=== PATIENT | female | born 1960 | race Caucasian/White ===

== ENCOUNTER 2016-07-04 05:39 | Day surgery (SDC) | payer MEDICARE, MEDICAID ==
[2016-07-03 14:05] LABS: ASPARTATE AMINO TRANSFERASE 20 U/L (15-37); BLOOD UREA NITROGEN 9 mg/dL (7-18)
[~2016-07-04] VITALS: Ht 170.2 cm; Wt 82.0 kg
[~2016-07-04 05:39] MED LIST: ALBU18HF INH; BUDE10.2 INH; DICYCLOMINE PO; LISINOPRIL PO; METOPROLOL PO
[2016-07-04] MEDS ORDERED: LACTATED RINGERS 1,000 ML IV SCH (06:19)
[2016-07-04 06:23] VITALS: BP 148/101
[2016-07-04] MEDS ORDERED: DICY10CA3 PO (06:28)
[2016-07-04] MEDS ORDERED: LISI-170 PO (06:28)
[2016-07-04] MEDS ORDERED: METO25TA35 PO (06:28)
[2016-07-04] MEDS ORDERED: LIDOCAINE 1%, 2ML SQ PRN (06:30)
[2016-07-04] MEDS ORDERED: PROPOFOL 10 MG/ML, 20ML ONE (07:39)
[2016-07-04] MEDS ORDERED: FENTANYL PF 100 MCG/2ML ONE (07:41)
[2016-07-04] MEDS ORDERED: PROMETHAZINE 25 MG/ML, 1ML IV PRN (08:30)
[2016-07-04] MEDS ORDERED: LABETALOL 5MG/ML, 20ML IV PRN (08:30)
[2016-07-04] MEDS ORDERED: HYDROmorphone 1 MG/ML, 1ML IV PRN (08:30)
[2016-07-04] MEDS ORDERED: OXYcodone 5 MG/5 ML ORAL.SOL UDC PO PRN (08:30)
[2016-07-04] MEDS ORDERED: ONDANSETRON 2MG/ML, 2ML IVPush PRN (08:30)
[2016-07-04] MEDS ORDERED: hydrALAzine 20 MG/ML, 1ML IV PRN (08:30)
[2016-07-04] MEDS ORDERED: FENTANYL PF 100 MCG/2ML IV PRN (08:30)
== END 2016-07-04 10:30 | disposition home or self-care (01) ==
LOC: OUT 05:39
PROVIDERS: ATTEND Internal Medicine Geriatric Medicine
DX: K86.89 Other specified diseases of pancreas (principal); I10 Essential (primary) hypertension; J44.9 Chronic obstructive pulmonary disease, unspecified; Z86.19 Personal history of other infectious and parasitic diseases; F17.210 Nicotine dependence, cigarettes, uncomplicated
CPT/HCPCS: 36415; 43239; 43259; 80053; 88305; 93005; J2704; J3010

== ENCOUNTER 2016-07-25 06:41 | Day surgery (SDC) | payer MEDICARE, MEDICAID ==
[~2016-07-25] VITALS: Ht 170.2 cm; Wt 79.0 kg
[~2016-07-25 06:41] MED LIST changes: +DICY10CA3 PO; +LISI-170 PO; +METO25TA35 PO
[2016-07-25] MEDS ORDERED: LACTATED RINGERS 1,000 ML IV SCH (07:25)
[2016-07-25 07:26] VITALS: BP 128/85
[2016-07-25] MEDS ORDERED: SUCCINYLCHOLINE 20 MG/ML, 10ML ONE (08:56)
[2016-07-25] MEDS ORDERED: ROCURONIUM 10 MG/ML ONE (08:56)
[2016-07-25] MEDS ORDERED: PROPOFOL 10 MG/ML, 20ML ONE (08:56)
[2016-07-25] MEDS ORDERED: ONDANSETRON 2MG/ML, 2ML IVPush PRN (09:00)
[2016-07-25] MEDS ORDERED: MEPERIDINE/PF 25MG/0.5ML IVPush PRN (09:00)
[2016-07-25] MEDS ORDERED: METOCLOPRAMIDE 5 MG/ML, 2ML IV PRN (09:00)
[2016-07-25] MEDS ORDERED: OXYcodone 5 MG/5 ML ORAL.SOL UDC PO PRN (09:00)
[2016-07-25] MEDS ORDERED: LABETALOL 5MG/ML, 20ML IV PRN (09:00)
[2016-07-25] MEDS ORDERED: PROMETHAZINE 25 MG/ML, 1ML IV PRN (09:00)
[2016-07-25] MEDS ORDERED: ALBUTEROL SULFATE 2.5 MG/3 ML NPPB PRN (09:00)
[2016-07-25] MEDS ORDERED: hydrALAzine 20 MG/ML, 1ML IV PRN (09:00)
[2016-07-25] MEDS ORDERED: HYDROmorphone 1 MG/ML, 1ML IV PRN (09:00)
[2016-07-25] MEDS ORDERED: INDOMETHACIN 50 MG SUPP.RECT ONE ×2 (09:39→10:00)
[2016-07-25] MEDS ORDERED: OMNIPAQUE 350 MG/ML, 50 ML BOTTLE ONE (10:14)
[2016-07-25] MEDS ORDERED: OXYcodone 5 MG/5 ML ORAL.SOL UDC ONE (10:17)
[2016-07-25] MEDS ORDERED: FENTANYL PF 100 MCG/2ML ONE (10:17)
[2016-07-25] MEDS: FENTANYL PF 100 MCG/2ML IV PRN ×3 (10:21→11:36)
[2016-07-25] MEDS ORDERED: INDOMETHACIN 50 MG SUPP.RECT PR ONE (10:30)
[2016-07-25] MEDS ORDERED: HYDROmorphone 2 MG/ML, 1ML ONE (12:24)
[2016-07-25] MEDS ORDERED: HYDROmorphone 1 MG/ML, 1ML IV ONE (12:30)
== END 2016-07-25 13:00 | disposition home or self-care (01) ==
LOC: OUT 06:41
PROVIDERS: ATTEND Internal Medicine Geriatric Medicine
DX: K86.89 Other specified diseases of pancreas (principal); J44.9 Chronic obstructive pulmonary disease, unspecified; F17.200 Nicotine dependence, unspecified, uncomplicated; F41.9 Anxiety disorder, unspecified; Z86.19 Personal history of other infectious and parasitic diseases; Z86.73 Personal history of transient ischemic attack (TIA), and cerebral infarction without residual deficits; Z85.42 Personal history of malignant neoplasm of other parts of uterus; Z90.710 Acquired absence of both cervix and uterus; Z98.890 Other specified postprocedural states; Z87.01 Personal history of pneumonia (recurrent); Z72.89 Other problems related to lifestyle
CPT/HCPCS: 43264; 43274; 74330; C1769; C2625; J0330; J1170; J2704; J3010; J7120; Q9967

== ENCOUNTER 2016-10-03 05:32 | Day surgery (SDC) | payer MEDICARE, MEDICAID ==
[~2016-10-03] VITALS: Ht 167.6 cm; Wt 74.2 kg
[2016-10-03] MEDS ORDERED: LACTATED RINGERS 1,000 ML IV SCH (06:07)
[2016-10-03 06:08] VITALS: BP 107/77
[2016-10-03] MEDS ORDERED: LIDOCAINE 1%, 2ML SQ PRN (06:30)
[2016-10-03] MEDS ORDERED: FENTANYL PF 100 MCG/2ML ONE ×2 (07:31→08:46)
[2016-10-03] MEDS ORDERED: ACETAMINOPHEN 325 MG TABLET PO PRN (08:30)
[2016-10-03] MEDS ORDERED: ONDANSETRON 2MG/ML, 2ML IVPush PRN (08:30)
[2016-10-03] MEDS ORDERED: MIDAZOLAM 1 MG/ML, 2ML IV PRN (08:30)
[2016-10-03] MEDS ORDERED: MEPERIDINE/PF 25MG/0.5ML IVPush PRN (08:30)
[2016-10-03] MEDS ORDERED: LABETALOL 5MG/ML, 20ML IV PRN (08:30)
[2016-10-03] MEDS ORDERED: hydrALAzine 20 MG/ML, 1ML IV PRN (08:30)
[2016-10-03] MEDS ORDERED: PROMETHAZINE 25 MG/ML, 1ML IV PRN (08:30)
[2016-10-03] MEDS ORDERED: OXYcodone 5 MG/5 ML ORAL.SOL UDC PO PRN (08:30)
[2016-10-03] MEDS ORDERED: HYDROmorphone 1 MG/ML, 1ML IV PRN (08:30)
[2016-10-03] MEDS ORDERED: INDOMETHACIN 50 MG SUPP.RECT ONE (08:39)
[2016-10-03] MEDS ORDERED: OXYcodone 5 MG/5 ML ORAL.SOL UDC ONE (08:47)
[2016-10-03] MEDS ORDERED: OMNIPAQUE 350 MG/ML, 50 ML BOTTLE ONE (08:50)
[2016-10-03] MEDS: FENTANYL PF 100 MCG/2ML IV PRN ×3 (08:50→09:10)
[2016-10-03] MEDS ORDERED: ALBUTEROL/IPRATROPIUM 2.5MG/0.5MG, 3 ML ONE (08:52)
[2016-10-03] MEDS ORDERED: ACETAMINOPHEN 650 MG/20.3 ML UDC ONE (08:53)
[2016-10-03] MEDS ORDERED: INDOMETHACIN 50 MG SUPP.RECT PR ONE (09:00)
[2016-10-03] MEDS ORDERED: PROPOFOL 10 MG/ML, 20ML ONE (16:26)
[2016-10-03] MEDS ORDERED: SUCCINYLCHOLINE 20 MG/ML, 10ML ONE (16:26)
[2016-10-03] MEDS ORDERED: ONDANSETRON 2MG/ML, 2ML ONE (16:26)
[2016-10-03] MEDS ORDERED: ROCURONIUM 10 MG/ML ONE (16:26)
[2016-10-03] MEDS ORDERED: ESMOLOL 100 MG/10 ML ONE (16:26)
== END 2016-10-03 10:10 ==
LOC: OUT 05:32
PROVIDERS: ATTEND Internal Medicine Geriatric Medicine
DX: K86.89 Other specified diseases of pancreas (principal); K85.90 Acute pancreatitis without necrosis or infection, unspecified; J44.9 Chronic obstructive pulmonary disease, unspecified; F17.210 Nicotine dependence, cigarettes, uncomplicated
CPT/HCPCS: 43276; 74328; 94640; C1769; C1894; C2625; J0330; J2405; J2704; J3010; J7120; Q9967

== ENCOUNTER 2016-11-30 07:18 | Inpatient (IN) | payer MEDICARE, MEDICAID ==
[~2016-11-30] VITALS: Ht 167.6 cm; Wt 76.8 kg
[2016-11-30] MEDS ORDERED: SODIUM CHLORIDE FLUSH 10ML SYR IVF ONE (07:30)
[2016-11-30] MEDS ORDERED: FAMOTIDINE 20 MG/2 ML IVP ONE (07:30)
[2016-11-30] MEDS ORDERED: ONDANSETRON 2MG/ML, 2ML IVPush ONE (07:30)
[2016-11-30] MEDS ORDERED: SODIUM CHLORIDE 0.9% 1,000ML IVBOLUS ONE (07:30)
[2016-11-30] MEDS ORDERED: FAMOTIDINE 20 MG/2 ML ONE (07:50)
[2016-11-30] MEDS ORDERED: ONDANSETRON 2MG/ML, 2ML ONE (07:50)
[2016-11-30] MEDS ORDERED: HYDROmorphone 1 MG/ML, 1ML ONE ×5 (07:50→16:36)
[2016-11-30 09:12] LABS: HEMATOCRIT 48.9 % (34.6-47.8); HEMOGLOBIN 16.4 g/dL (11.7-16.4); WHITE BLOOD COUNT 10.3 x10^3/uL (3.4-10)
[2016-11-30] MEDS: HYDROmorphone 1 MG/ML, 1ML IVPush PRN ×2 (09:15→10:38)
[2016-11-30] MEDS ORDERED: OMNIPAQUE 350 MG/ML, 100ML BOTTLE ONE (09:59)
[2016-11-30] MEDS ORDERED: HYDROmorphone 2 MG/ML, 1ML IVPush ONE ×2 (11:30→13:30)
[2016-11-30 11:31] LABS: ASPARTATE AMINO TRANSFERASE 22 U/L (15-37); BLOOD UREA NITROGEN 11 mg/dL (7-18)
[2016-11-30] MEDS ORDERED: HYDROmorphone 2 MG/ML, 1ML ONE ×2 (12:14→13:35)
[2016-11-30] MEDS ORDERED: ALBUTEROL SULFATE 2.5MG/0.5ML NPPB PRN (13:30)
[2016-11-30] MEDS ORDERED: LISINOPRIL 20 MG TABLET PO ONE (13:30)
[2016-11-30] MEDS: METOPROLOL TARTRATE 25 MG TABLET PO SCH ×2 (15:09→21:22)
[2016-11-30] MEDS ORDERED: LISINOPRIL 20 MG TABLET ONE (15:21)
[2016-11-30] MEDS: HYDROmorphone 1 MG/ML, 1ML IV PRN ×3 (15:29→19:08)
[2016-11-30] MEDS: SODIUM CHLORIDE 0.9% 1,000 ML IV SCH (15:29)
[2016-11-30 17:21] VITALS: BP 185/81
[2016-11-30] MEDS ORDERED: ALBUTEROL SULFATE 2.5 MG/3 ML NPPB PRN (18:00)
[2016-11-30 19:43] VITALS: BP 151/91
[2016-11-30] MEDS: ENOXAPARIN 30 MG/0.3 ML SQ SCH (21:00)
[2016-11-30] MEDS: FAMOTIDINE 20 MG/2 ML IVPush SCH (21:00)
[2016-11-30] MEDS: HYDROmorphone 2 MG/ML, 1ML IVPush PRN ×2 (21:11→23:17)
[2016-12-01] MEDS: HYDROmorphone 2 MG/ML, 1ML IVPush PRN ×4 (01:16→22:31)
[2016-12-01 01:59] VITALS: BP 140/86
[2016-12-01] MEDS: HYDROmorphone 1 MG/ML, 1ML IV PRN ×6 (03:18→16:02)
[2016-12-01 06:42] LABS: HEMATOCRIT 52.1 % (34.6-47.8); HEMOGLOBIN 17.4 g/dL (11.7-16.4); WHITE BLOOD COUNT 9.9 x10^3/uL (3.4-10)
[2016-12-01 06:43] LABS: BLOOD UREA NITROGEN 9 mg/dL (7-18)
[2016-12-01 06:45] LABS: ASPARTATE AMINO TRANSFERASE 14 U/L (15-37)
[2016-12-01 06:55] VITALS: BP 182/91
[2016-12-01] MEDS: METOPROLOL TARTRATE 25 MG TABLET PO SCH ×2 (07:38→21:48)
[2016-12-01] MEDS: LISINOPRIL 20 MG TABLET PO SCH (09:59)
[2016-12-01] MEDS: ENOXAPARIN 30 MG/0.3 ML SQ SCH ×2 (10:10→21:48)
[2016-12-01] MEDS: ONDANSETRON 2MG/ML, 2ML IVPush PRN (10:10)
[2016-12-01] MEDS: SODIUM CHLORIDE 0.9% 1,000 ML IV SCH (11:20)
[2016-12-01] MEDS ORDERED: MIDAZOLAM 1 MG/ML, 2ML ONE (12:43)
[2016-12-01] MEDS ORDERED: FENTANYL PF 100 MCG/2ML ONE ×4 (12:43→15:36)
[2016-12-01] MEDS ORDERED: ONDANSETRON 2MG/ML, 2ML ONE (12:45)
[2016-12-01] MEDS ORDERED: DEXAMETHASONE 4 MG/ML, 1ML ONE (12:45)
[2016-12-01] MEDS ORDERED: PROPOFOL 10 MG/ML, 20ML ONE (12:45)
[2016-12-01] MEDS ORDERED: SUCCINYLCHOLINE 20 MG/ML, 10ML ONE (12:45)
[2016-12-01] MEDS ORDERED: ALBUTEROL/IPRATROPIUM 2.5MG/0.5MG, 3 ML NPPB PRN (13:00)
[2016-12-01] MEDS ORDERED: HYDROmorphone 1 MG/ML, 1ML IV PRN (13:00)
[2016-12-01] MEDS ORDERED: PROMETHAZINE 25 MG/ML, 1ML IV PRN (13:00)
[2016-12-01] MEDS ORDERED: METOPROLOL 1 MG/ML, 5ML IV PRN (13:00)
[2016-12-01] MEDS ORDERED: OXYcodone 5 MG/5 ML ORAL.SOL UDC PO PRN (13:00)
[2016-12-01] MEDS ORDERED: LORazepam 2 MG/ML, 1ML IVPush PRN (13:00)
[2016-12-01] MEDS ORDERED: METOPROLOL 1 MG/ML, 5ML ONE (13:32)
[2016-12-01] MEDS ORDERED: MORPHINE SULFATE 4 MG/ML, 1ML ONE (14:30)
[2016-12-01] MEDS ORDERED: hydrALAzine 20 MG/ML, 1ML ONE (15:25)
[2016-12-01] MEDS ORDERED: LABETALOL 5MG/ML, 20ML ONE (15:25)
[2016-12-01] MEDS ORDERED: INDOMETHACIN 50 MG SUPP.RECT ONE (15:25)
[2016-12-01] MEDS: LABETALOL 5MG/ML, 20ML IVPush PRN ×2 (15:27→15:32)
[2016-12-01] MEDS ORDERED: INDOMETHACIN 50 MG SUPP.RECT PR ONE (15:30)
[2016-12-01] MEDS ORDERED: HYDROmorphone 1 MG/ML, 1ML ONE ×3 (15:36→16:04)
[2016-12-01] MEDS ORDERED: OXYcodone 5 MG/5 ML ORAL.SOL UDC ONE (15:37)
[2016-12-01] MEDS: FENTANYL PF 100 MCG/2ML IV PRN ×2 (15:38→15:45)
[2016-12-01] MEDS: hydrALAzine 20 MG/ML, 1ML IV PRN ×2 (15:54→16:15)
[2016-12-01] MEDS: PIPERACILLIN/TAZO/PMX 3.375GM 50 ML IV SCH (16:42)
[2016-12-01 20:00] VITALS: BP 120/75
[2016-12-01] MEDS: FAMOTIDINE 20 MG/2 ML IVPush SCH (21:47)
[2016-12-02] MEDS: PIPERACILLIN/TAZO/PMX 3.375GM 50 ML IV SCH ×3 (01:01→17:29)
[2016-12-02] MEDS: HYDROmorphone 2 MG/ML, 1ML IVPush PRN ×11 (01:02→23:58)
[2016-12-02 02:00] VITALS: BP 112/65
[2016-12-02] MEDS: SODIUM CHLORIDE 0.9% 1,000 ML IV SCH ×2 (03:59→17:29)
[2016-12-02 04:55] LABS: BLOOD UREA NITROGEN 11 mg/dL (7-18)
[2016-12-02 04:56] LABS: HEMATOCRIT 40.9 % (34.6-47.8); HEMOGLOBIN 13.6 g/dL (11.7-16.4)
[2016-12-02 05:00] LABS: ASPARTATE AMINO TRANSFERASE 10 U/L (15-37)
[2016-12-02] MEDS ORDERED: ALBUTEROL SULFATE 2.5 MG/3 ML NPPB PRN (07:00)
[2016-12-02 07:12] VITALS: BP 120/73
[2016-12-02] MEDS: LISINOPRIL 20 MG TABLET PO SCH ×2 (08:54→09:00)
[2016-12-02] MEDS: METOPROLOL TARTRATE 25 MG TABLET PO SCH ×3 (08:54→21:49)
[2016-12-02] MEDS: ENOXAPARIN 30 MG/0.3 ML SQ SCH ×2 (08:54→21:50)
[2016-12-02 15:07] VITALS: BP 136/87
[2016-12-02 19:47] VITALS: BP 175/115
[2016-12-02 21:46] VITALS: BP 157/92
[2016-12-02] MEDS: FAMOTIDINE 20 MG/2 ML IVPush SCH (21:49)
[2016-12-03] MEDS: PIPERACILLIN/TAZO/PMX 3.375GM 50 ML IV SCH ×3 (01:32→17:14)
[2016-12-03 01:35] VITALS: BP 149/80
[2016-12-03] MEDS: HYDROmorphone 2 MG/ML, 1ML IVPush PRN ×2 (02:07→04:27)
[2016-12-03] MEDS: SODIUM CHLORIDE 0.9% 1,000 ML IV SCH ×2 (03:37→14:30)
[2016-12-03 03:46] LABS: HEMATOCRIT 40.4 % (34.6-47.8); HEMOGLOBIN 13.5 g/dL (11.7-16.4); WHITE BLOOD COUNT 6.4 x10^3/uL (3.4-10)
[2016-12-03 04:00] LABS: ASPARTATE AMINO TRANSFERASE 14 U/L (15-37); BLOOD UREA NITROGEN 6 mg/dL (7-18)
[2016-12-03] MEDS: HYDROmorphone PCA 30 MG/30 ML IV PRN ×2 (07:50→17:13)
[2016-12-03] MEDS: LISINOPRIL 20 MG TABLET PO SCH (08:37)
[2016-12-03] MEDS: FLUTICASONE/VILANTEROL 200-25MCG/INH INH SCH (08:37)
[2016-12-03] MEDS: METOPROLOL TARTRATE 25 MG TABLET PO SCH ×2 (08:37→21:15)
[2016-12-03] MEDS: ENOXAPARIN 30 MG/0.3 ML SQ SCH ×2 (08:38→21:16)
[2016-12-03 09:03] VITALS: BP 168/103
[2016-12-03 14:40] VITALS: BP 124/79
[2016-12-03 20:59] VITALS: BP 136/82
[2016-12-03] MEDS: FAMOTIDINE 20 MG/2 ML IVPush SCH (21:15)
[2016-12-04 01:14] VITALS: BP 164/85
[2016-12-04] MEDS: PIPERACILLIN/TAZO/PMX 3.375GM 50 ML IV SCH ×3 (02:22→20:28)
[2016-12-04] MEDS: SODIUM CHLORIDE 0.9% 1,000 ML IV SCH ×2 (02:22→11:57)
[2016-12-04 04:04] LABS: HEMATOCRIT 37.9 % (34.6-47.8); HEMOGLOBIN 12.5 g/dL (11.7-16.4); WHITE BLOOD COUNT 5.5 x10^3/uL (3.4-10)
[2016-12-04 04:16] LABS: ASPARTATE AMINO TRANSFERASE 12 U/L (15-37); BLOOD UREA NITROGEN 4 mg/dL (7-18)
[2016-12-04] MEDS: ENOXAPARIN 30 MG/0.3 ML SQ SCH ×3 (07:55→21:00)
[2016-12-04] MEDS: METOPROLOL TARTRATE 25 MG TABLET PO SCH ×2 (07:56→20:28)
[2016-12-04] MEDS: LISINOPRIL 20 MG TABLET PO SCH (07:56)
[2016-12-04] MEDS: FLUTICASONE/VILANTEROL 200-25MCG/INH INH SCH (07:56)
[2016-12-04] MEDS: ONDANSETRON 2MG/ML, 2ML IVPush PRN (07:56)
[2016-12-04 08:02] VITALS: BP 186/93
[2016-12-04] MEDS: LABETALOL 5MG/ML, 20ML IVPush PRN (08:09)
[2016-12-04 15:17] VITALS: BP 170/88
[2016-12-04] MEDS: KETOROLAC 30 MG/1 ML IVPush PRN (17:50)
[2016-12-04] MEDS: HYDROmorphone PCA 30 MG/30 ML IV PRN (18:22)
[2016-12-04 20:19] VITALS: BP 206/100
[2016-12-04] MEDS: FAMOTIDINE 20 MG/2 ML IVPush SCH (20:28)
[2016-12-04 21:15] VITALS: BP 195/103
[2016-12-04] MEDS ORDERED: ENALAPRILAT 1.25 MG/ML, 2ML IV ONE (21:30)
[2016-12-04 21:40] VITALS: BP 167/94
[2016-12-05 01:40] VITALS: BP 197/95
[2016-12-05] MEDS: SODIUM CHLORIDE 0.9% 1,000 ML IV SCH (01:50)
[2016-12-05] MEDS ORDERED: hydrALAzine 20 MG/ML, 1ML IV PRN (02:00)
[2016-12-05 02:25] VITALS: BP 162/85
[2016-12-05] MEDS: PIPERACILLIN/TAZO/PMX 3.375GM 50 ML IV SCH ×3 (04:13→20:19)
[2016-12-05 05:19] VITALS: BP 168/94
[2016-12-05 08:00] VITALS: BP 178/96
[2016-12-05] MEDS: FLUTICASONE/VILANTEROL 200-25MCG/INH INH SCH (08:05)
[2016-12-05] MEDS: METOPROLOL TARTRATE 25 MG TABLET PO SCH ×2 (08:05→20:20)
[2016-12-05] MEDS: KETOROLAC 30 MG/1 ML IVPush PRN (08:10)
[2016-12-05] MEDS: ONDANSETRON 2MG/ML, 2ML IVPush PRN (08:11)
[2016-12-05] MEDS: ENOXAPARIN 30 MG/0.3 ML SQ SCH ×2 (08:37→20:19)
[2016-12-05] MEDS: LISINOPRIL 10 MG TABLET PO SCH (09:00)
[2016-12-05] MEDS ORDERED: LISINOPRIL 20 MG TABLET PO SCH (09:00)
[2016-12-05] MEDS: ACYCLOVIR 200 MG CAPSULE PO SCH ×4 (11:51→20:19)
[2016-12-05] MEDS ORDERED: GLUCAGON 1 MG IM PRN (12:30)
[2016-12-05] MEDS ORDERED: HYDROmorphone PCA 30 MG/30 ML IV PRN (12:30)
[2016-12-05] MEDS ORDERED: DEXTROSE 4 GM TAB.CHEW PO PRN (12:30)
[2016-12-05] MEDS ORDERED: DEXTROSE 50%, 50ML SYRINGE IVPush PRN (12:30)
[2016-12-05] MEDS: INSULIN ASPART 100 UNITS/ML, PEN SQ-INSULIN SCH ×3 (13:03→21:00)
[2016-12-05 15:37] VITALS: BP 172/95
[2016-12-05 19:54] VITALS: BP 129/84
[2016-12-05] MEDS: FAMOTIDINE 20 MG/2 ML IVPush SCH (20:19)
[2016-12-05] MEDS: SODIUM CHLORIDE FLUSH 10ML SYR IVF SCH (20:19)
[2016-12-06 01:30] VITALS: BP 109/69
[2016-12-06] MEDS: PIPERACILLIN/TAZO/PMX 3.375GM 50 ML IV SCH (04:57)
[2016-12-06 05:36] LABS: BLOOD UREA NITROGEN 6 mg/dL (7-18)
[2016-12-06] MEDS: ACYCLOVIR 200 MG CAPSULE PO SCH ×5 (06:42→20:32)
[2016-12-06 06:56] VITALS: BP 138/80
[2016-12-06] MEDS: INSULIN ASPART 100 UNITS/ML, PEN SQ-INSULIN SCH ×4 (07:00→20:36)
[2016-12-06] MEDS: ENOXAPARIN 30 MG/0.3 ML SQ SCH ×2 (08:33→20:32)
[2016-12-06] MEDS: METOPROLOL TARTRATE 25 MG TABLET PO SCH ×2 (08:34→20:32)
[2016-12-06] MEDS: FLUTICASONE/VILANTEROL 200-25MCG/INH INH SCH (08:35)
[2016-12-06] MEDS: SODIUM CHLORIDE FLUSH 10ML SYR IVF SCH ×2 (08:37→20:32)
[2016-12-06] MEDS: LISINOPRIL 10 MG TABLET PO SCH (08:39)
[2016-12-06] MEDS ORDERED: POTASSIUM CHLORIDE 20 MEQ TAB.ER.PRT PO ONE (09:00)
[2016-12-06] MEDS ORDERED: LISINOPRIL 10 MG TABLET PO SCH (09:00)
[2016-12-06 13:37] VITALS: BP 150/92
[2016-12-06 20:14] VITALS: BP 180/81
[2016-12-06] MEDS: FAMOTIDINE 20 MG/2 ML IVPush SCH (20:31)
[2016-12-07 01:21] VITALS: BP 144/81
[2016-12-07] MEDS: ACYCLOVIR 200 MG CAPSULE PO SCH ×5 (05:05→22:34)
[2016-12-07 05:59] LABS: BLOOD UREA NITROGEN 4 mg/dL (7-18)
[2016-12-07] MEDS: INSULIN ASPART 100 UNITS/ML, PEN SQ-INSULIN SCH ×4 (07:00→21:08)
[2016-12-07 07:27] VITALS: BP 158/91
[2016-12-07] MEDS: NS + 20MEQ KCL 1,000 ML IV SCH ×2 (07:53→22:35)
[2016-12-07] MEDS: SODIUM CHLORIDE FLUSH 10ML SYR IVF SCH ×2 (07:54→21:08)
[2016-12-07] MEDS: METOPROLOL TARTRATE 25 MG TABLET PO SCH ×2 (07:54→21:08)
[2016-12-07] MEDS: FLUTICASONE/VILANTEROL 200-25MCG/INH INH SCH (07:54)
[2016-12-07] MEDS: LISINOPRIL 10 MG TABLET PO SCH (07:55)
[2016-12-07] MEDS: ENOXAPARIN 30 MG/0.3 ML SQ SCH ×2 (07:55→21:09)
[2016-12-07 13:57] VITALS: BP 135/70
[2016-12-07] MEDS ORDERED: PROPOFOL 10 MG/ML, 20ML ONE (14:11)
[2016-12-07] MEDS ORDERED: ROCURONIUM 10 MG/ML ONE (14:11)
[2016-12-07] MEDS ORDERED: PROMETHAZINE 25 MG/ML, 1ML IV PRN (15:00)
[2016-12-07] MEDS ORDERED: ONDANSETRON 2MG/ML, 2ML IVPush PRN (15:00)
[2016-12-07] MEDS ORDERED: DEXAMETHASONE 4 MG/ML, 1ML ONE ×2 (15:10→15:23)
[2016-12-07] MEDS ORDERED: GLYCOPYRROLATE 0.4 MG/2 ML, 2ML ONE (15:29)
[2016-12-07] MEDS ORDERED: NEOSTIGMINE 1 MG/ML, 10ML ONE (15:29)
[2016-12-07] MEDS ORDERED: FENTANYL PF 100 MCG/2ML ONE (16:35)
[2016-12-07] MEDS ORDERED: INDOMETHACIN 50 MG SUPP.RECT ONE (16:35)
[2016-12-07] MEDS ORDERED: hydrALAzine 20 MG/ML, 1ML ONE (16:37)
[2016-12-07] MEDS: FENTANYL PF 100 MCG/2ML IV PRN ×2 (16:42→16:58)
[2016-12-07] MEDS ORDERED: INDOMETHACIN 50 MG SUPP.RECT PR ONE (17:00)
[2016-12-07 19:05] VITALS: BP 139/89
[2016-12-07] MEDS: FAMOTIDINE 20 MG/2 ML IVPush SCH (21:08)
[2016-12-07] MEDS: HYDROCHLOROTHIAZIDE 12.5 MG CAPSULE PO SCH (22:34)
[2016-12-08 00:19] VITALS: BP 114/63
[2016-12-08] MEDS: ACYCLOVIR 200 MG CAPSULE PO SCH ×5 (05:36→23:07)
[2016-12-08 05:46] LABS: HEMATOCRIT 36.5 % (34.6-47.8); HEMOGLOBIN 12.2 g/dL (11.7-16.4); WHITE BLOOD COUNT 5.5 x10^3/uL (3.4-10)
[2016-12-08 06:14] LABS: ASPARTATE AMINO TRANSFERASE 20 U/L (15-37); BLOOD UREA NITROGEN 9 mg/dL (7-18)
[2016-12-08 07:10] VITALS: BP 127/81
[2016-12-08] MEDS: LISINOPRIL 10 MG TABLET PO SCH (09:05)
[2016-12-08] MEDS: METOPROLOL TARTRATE 25 MG TABLET PO SCH ×2 (09:05→21:21)
[2016-12-08] MEDS: ENOXAPARIN 30 MG/0.3 ML SQ SCH ×2 (09:05→21:21)
[2016-12-08] MEDS: INSULIN ASPART 100 UNITS/ML, PEN SQ-INSULIN SCH ×4 (09:06→21:00)
[2016-12-08] MEDS: SODIUM CHLORIDE FLUSH 10ML SYR IVF SCH ×2 (09:07→21:21)
[2016-12-08] MEDS: FLUTICASONE/VILANTEROL 200-25MCG/INH INH SCH (09:07)
[2016-12-08] MEDS: HYDROCHLOROTHIAZIDE 12.5 MG CAPSULE PO SCH (09:08)
[2016-12-08] MEDS: OXYcodone/APAP 10/325MG TABLET PO SCH ×3 (12:50→21:21)
[2016-12-08] MEDS: HYDROmorphone 1 MG/ML, 1ML IV SCH ×4 (12:50→23:07)
[2016-12-08 13:16] VITALS: BP 104/64
[2016-12-08 19:28] VITALS: BP 146/83
[2016-12-08] MEDS: FAMOTIDINE 20 MG/2 ML IVPush SCH (21:20)
[2016-12-09 00:51] VITALS: BP 133/84
[2016-12-09] MEDS: OXYcodone/APAP 10/325MG TABLET PO SCH ×4 (01:35→10:38)
[2016-12-09] MEDS: HYDROmorphone 1 MG/ML, 1ML IV SCH ×2 (02:00→04:31)
[2016-12-09] MEDS: ACYCLOVIR 200 MG CAPSULE PO SCH ×2 (05:30→10:37)
[2016-12-09 06:57] VITALS: BP 151/81
[2016-12-09] MEDS ORDERED: HYDROmorphone 2MG TABLET PO PRN (07:00)
[2016-12-09] MEDS: INSULIN ASPART 100 UNITS/ML, PEN SQ-INSULIN SCH ×2 (07:00→11:00)
[2016-12-09] MEDS: SODIUM CHLORIDE FLUSH 10ML SYR IVF SCH (09:00)
[2016-12-09] MEDS: FLUTICASONE/VILANTEROL 200-25MCG/INH INH SCH (10:37)
[2016-12-09] MEDS: METOPROLOL TARTRATE 25 MG TABLET PO SCH (10:37)
[2016-12-09] MEDS: HYDROCHLOROTHIAZIDE 12.5 MG CAPSULE PO SCH (10:38)
[2016-12-09] MEDS: LISINOPRIL 10 MG TABLET PO SCH (10:38)
[2016-12-09] MEDS: ENOXAPARIN 30 MG/0.3 ML SQ SCH (10:39)
[2016-12-09] MEDS ORDERED: OXYC1TAB9 PO (14:28)
[2016-12-09] MEDS ORDERED: HYDR2TAB40 PO (14:28)
[2016-12-09 15:05] VITALS: BP 151/81
== END 2016-12-09 16:16 | disposition home or self-care (01) | DRG 438 ==
LOC: ED 07:48 → EDIP 12:06 → INTOOBSV 12:06 → 3NE 16:57 → OBSVTOIN 12-01 15:48
PROVIDERS: ADMIT Family Medicine; ATTEND Family Medicine
PROC: 0FJD8ZZ Inspection of Pancreatic Duct, Via Natural or Artificial Opening Endoscopic (ICD-10-PCS; principal; 2016-12-01 12:30)
PROC: 0F7D8DZ Dilation of Pancreatic Duct with Intraluminal Device, Via Natural or Artificial Opening Endoscopic (ICD-10-PCS; 2016-12-07)
DX: K85.10 Biliary acute pancreatitis without necrosis or infection (principal); K83.1 Obstruction of bile duct; N17.9 Acute kidney failure, unspecified; Z99.81 Dependence on supplemental oxygen; I10 Essential (primary) hypertension; J44.9 Chronic obstructive pulmonary disease, unspecified; B19.20 Unspecified viral hepatitis C without hepatic coma; K86.1 Other chronic pancreatitis; F17.210 Nicotine dependence, cigarettes, uncomplicated; K86.89 Other specified diseases of pancreas; R00.0 Tachycardia, unspecified; R73.9 Hyperglycemia, unspecified; B00.9 Herpesviral infection, unspecified; R21 Rash and other nonspecific skin eruption; Z90.710 Acquired absence of both cervix and uterus
CPT/HCPCS: 36415; 36569; 71010; 74177; 74330; 76937; 77001; 80048; 80053; 81003; 82962; 83036; 83605; 83690; 85025; 87070; 87205; 87252; 93005; 96361; 96374; 96375; 96376; G0378; J1100; J1170; J1650; J1815; J1885; J2250; J2405; J2543; J2704; J2710; J3010; J3480; Q9967; C1751; C1769; C2625; J0330; J0360; J7030; S0028

== ENCOUNTER 2017-10-06 01:59 | Inpatient (IN) | payer MEDICARE, MEDICAID ==
[~2017-10-06] VITALS: Ht 162.6 cm; Wt 87.0 kg
[~2017-10-06 01:59] MED LIST changes: +HYDR2TAB40 PO; +OXYC-432 PO
[2017-10-06] MEDS ORDERED: MORPHINE SULFATE 4 MG/ML, 1ML IVPush PRN (02:30)
[2017-10-06] MEDS ORDERED: ALBUTEROL/IPRATROPIUM 2.5MG/0.5MG, 3 ML NPPB SCH ×2 (02:30→07:00)
[2017-10-06] MEDS ORDERED: SODIUM CHLORIDE FLUSH 10ML SYR IVF ONE (02:30)
[2017-10-06] MEDS ORDERED: methylPREDNISolone SOD SUCC 125 MG/2 ML IVP ONE (02:30)
[2017-10-06] MEDS ORDERED: ALBUTEROL/IPRATROPIUM 2.5MG/0.5MG, 3 ML ONE (02:37)
[2017-10-06 02:46] LABS: BASOPHILS # (AUTO) 0.04 x10^3/uL (0-0.1); BASOPHILS % (AUTO) 1 % (0-1); EOSINOPHILS # (AUTO) 0.04 x10^3/uL (0-0.4); EOSINOPHILS % (AUTO) 1 % (1-7); LYMPHOCYTES # (AUTO) 0.95 x10^3/uL (1-3.4); LYMPHOCYTES % (AUTO) 15 % (22-44); MD NO; MEAN CORPUSCULAR HEMOGLOBIN 30.4 pg (27.0-34.8); MEAN CORPUSCULAR HGB CONC 32.4 g/dL (32.4-35.8); MEAN PLATELET VOLUME 9.1 fL (7.4-10.4); MONOCYTES # (AUTO) 0.72 x10^3/uL (0.2-0.8); MONOCYTES % (AUTO) 11 % (2-9); NEUTROPHILS # (AUTO) 4.69 x10^3/uL (1.8-6.8); NEUTROPHILS % (AUTO) 73 % (42-75); PLATELET COUNT 138 x10^3/uL (130-400); RED BLOOD COUNT 5.23 x10^6/uL (3.82-5.3); RED CELL DISTRIBUTION WIDTH 16.2 % (9.6-15.2)
[2017-10-06] MEDS ORDERED: methylPREDNISolone SOD SUCC 125 MG/2 ML ONE (02:50)
[2017-10-06 02:57] LABS: INTERNATIONAL NORMALIZED RATIO 1.23 (0.93-1.1); PROTHROMBIN TIME 12.6 Seconds (9.6-11.5)
[2017-10-06 02:59] LABS: ALANINE AMINOTRANSFERASE 28 U/L (12-78); ALBUMIN 3.1 g/dL (3.4-5.0); ANION GAP 6 mmol/L (5-15); CALCIUM 8.1 mg/dL (8.5-10.1); CHLORIDE 105 mmol/L (98-107); CREATININE 1.33 mg/dL (0.55-1.02)
[2017-10-06 03:03] LABS: ALKALINE PHOSPHATASE 142 U/L (45-117); BILIRUBIN,TOTAL 0.7 mg/dL (0.2-1.0); TOTAL PROTEIN 8.9 g/dL (6.4-8.2); TROPONIN I 0.023 ng/mL (0.000-0.045)
[2017-10-06] MEDS ORDERED: FUROSEMIDE 20 MG/2 ML ONE (03:28)
[2017-10-06] MEDS ORDERED: FUROSEMIDE 40 MG/4 ML IV ONE ×2 (03:30→17:30)
[2017-10-06] MEDS ORDERED: MORPHINE SULFATE 4 MG/ML, 1ML ONE (03:33)
[2017-10-06] MEDS ORDERED: ENALAPRILAT 1.25 MG/ML, 2ML IVPush PRN (04:00)
[2017-10-06] MEDS ORDERED: ACETAMINOPHEN 325 MG TABLET PO PRN (04:00)
[2017-10-06] MEDS ORDERED: GUAIFENESIN/DM 200-20MG, 10ML UDC PO PRN (04:00)
[2017-10-06] MEDS ORDERED: LABETALOL 5MG/ML, 20ML IVPush PRN (04:00)
[2017-10-06] MEDS ORDERED: TEMPLATE NON-FORMULARY MED. (Albuterol Sulfate (Ventolin Hfa) 1 PUFF) INH SCH (04:30)
[2017-10-06] MEDS ORDERED: CEFTRIAXONE PMX 1GM/50ML 50 ML ONE (04:40)
[2017-10-06] MEDS ORDERED: HEPARIN 5,000 UNITS/ML, 1ML ONE (04:40)
[2017-10-06] MEDS: CEFTRIAXONE 1,000 MG in DEXTROSE 5% 50 ML IV SCH (04:42)
[2017-10-06] MEDS: HEPARIN 5,000 UNITS/ML, 1ML SQ SCH ×3 (04:42→20:35)
[2017-10-06] MEDS ORDERED: POTASSIUM CHLORIDE 40 MEQ in SODIUM CHLORIDE 0.9% 500 ML IV ONE (05:00)
[2017-10-06] MEDS: ALBUTEROL/IPRATROPIUM 2.5MG/0.5MG, 3 ML NPPB SCH ×4 (07:00→20:21)
[2017-10-06] MEDS: LISINOPRIL 20 MG TABLET PO SCH (08:31)
[2017-10-06] MEDS: METOPROLOL TARTRATE 25 MG TABLET PO SCH (08:31)
[2017-10-06] MEDS: POTASSIUM CHLORIDE 20 MEQ TAB.ER.PRT PO SCH (08:31)
[2017-10-06 08:43] VITALS: BP 151/87
[2017-10-06] MEDS: OXYcodone/APAP 10/325MG TABLET PO PRN ×4 (09:10→22:19)
[2017-10-06] MEDS: FLUTICASONE/VILANTEROL 100-25MCG/INH INH SCH (10:45)
[2017-10-06] MEDS: methylPREDNISolone SOD SUCC 40 MG/ML IVPush SCH ×2 (10:45→18:00)
[2017-10-06 12:04] LABS: ANION GAP 11 mmol/L (5-15); CALCIUM 7.8 mg/dL (8.5-10.1); CHLORIDE 103 mmol/L (98-107); CREATININE 1.24 mg/dL (0.55-1.02)
[2017-10-06 13:04] VITALS: BP 143/88
[2017-10-06 19:18] VITALS: BP 121/72
[2017-10-07 02:29] VITALS: BP 137/80
[2017-10-07] MEDS: methylPREDNISolone SOD SUCC 40 MG/ML IVPush SCH (02:34)
[2017-10-07] MEDS: OXYcodone/APAP 10/325MG TABLET PO PRN ×5 (02:34→20:14)
[2017-10-07] MEDS: CEFTRIAXONE 1,000 MG in DEXTROSE 5% 50 ML IV SCH (04:42)
[2017-10-07] MEDS: HEPARIN 5,000 UNITS/ML, 1ML SQ SCH ×3 (04:42→20:14)
[2017-10-07 05:34] LABS: BASOPHILS % (AUTO) 0 % (0-1); EOSINOPHILS % (AUTO) 0 % (1-7); LYMPHOCYTES # (AUTO) 0.27 x10^3/uL (1-3.4); LYMPHOCYTES % (AUTO) 6 % (22-44); MD NO; MEAN CORPUSCULAR HEMOGLOBIN 30.3 pg (27.0-34.8); MEAN CORPUSCULAR HGB CONC 32.3 g/dL (32.4-35.8); MEAN CORPUSCULAR VOLUME 93.7 fL (80-100); MEAN PLATELET VOLUME 9.5 fL (7.4-10.4); MONOCYTES # (AUTO) 0.24 x10^3/uL (0.2-0.8); MONOCYTES % (AUTO) 5 % (2-9); NEUTROPHILS # (AUTO) 4.14 x10^3/uL (1.8-6.8); NEUTROPHILS % (AUTO) 89 % (42-75); PLATELET COUNT 118 x10^3/uL (130-400); RED BLOOD COUNT 4.96 x10^6/uL (3.82-5.3); RED CELL DISTRIBUTION WIDTH 16.6 % (9.6-15.2)
[2017-10-07 05:46] LABS: CHLORIDE 101 mmol/L (98-107)
[2017-10-07 05:55] LABS: ALANINE AMINOTRANSFERASE 20 U/L (12-78); ALBUMIN 2.6 g/dL (3.4-5.0); ALKALINE PHOSPHATASE 114 U/L (45-117); ANION GAP 8 mmol/L (5-15); BILIRUBIN,TOTAL 0.7 mg/dL (0.2-1.0); CALCIUM 7.7 mg/dL (8.5-10.1); CREATININE 1.55 mg/dL (0.55-1.02); TOTAL PROTEIN 7.8 g/dL (6.4-8.2)
[2017-10-07] MEDS ORDERED: MAGNESIUM SULFATE PMX 1GM/100ML IV ONE (07:00)
[2017-10-07] MEDS ORDERED: MAGNESIUM SULFATE/D5W 100 ML IVPB ONE (07:00)
[2017-10-07] MEDS: ALBUTEROL/IPRATROPIUM 2.5MG/0.5MG, 3 ML NPPB SCH ×4 (08:00→18:40)
[2017-10-07 08:28] VITALS: BP 165/99
[2017-10-07] MEDS ORDERED: FUROSEMIDE 40 MG/4 ML IV ONE (09:30)
[2017-10-07] MEDS: SODIUM CHLORIDE 0.9% 1,000 ML IV SCH (09:30)
[2017-10-07] MEDS: METOPROLOL TARTRATE 25 MG TABLET PO SCH (09:52)
[2017-10-07] MEDS: POTASSIUM CHLORIDE 20 MEQ TAB.ER.PRT PO SCH (09:52)
[2017-10-07] MEDS: LISINOPRIL 20 MG TABLET PO SCH (09:53)
[2017-10-07] MEDS: FLUTICASONE/VILANTEROL 100-25MCG/INH INH SCH (09:55)
[2017-10-07 14:14] VITALS: BP 144/86
[2017-10-07 20:18] VITALS: BP 132/76
[2017-10-08] MEDS: OXYcodone/APAP 10/325MG TABLET PO PRN ×3 (00:21→09:49)
[2017-10-08] MEDS: SODIUM CHLORIDE 0.9% 1,000 ML IV SCH (00:21)
[2017-10-08 00:47] VITALS: BP 147/76
[2017-10-08] MEDS: HEPARIN 5,000 UNITS/ML, 1ML SQ SCH ×2 (04:50→12:00)
[2017-10-08 05:56] LABS: ANION GAP 7 mmol/L (5-15); CALCIUM 7.8 mg/dL (8.5-10.1); CHLORIDE 101 mmol/L (98-107)
[2017-10-08 05:57] LABS: HEMOGLOBIN A1C 6.5 % (4.2-6.3)
[2017-10-08] MEDS ORDERED: MAGNESIUM SULFATE PMX 2GM/50ML 50 ML IV ONE (06:30)
[2017-10-08] MEDS: ALBUTEROL/IPRATROPIUM 2.5MG/0.5MG, 3 ML NPPB SCH ×2 (06:45→11:15)
[2017-10-08 07:39] VITALS: BP 132/75
[2017-10-08] MEDS: FLUTICASONE/VILANTEROL 100-25MCG/INH INH SCH (08:12)
[2017-10-08] MEDS: LISINOPRIL 20 MG TABLET PO SCH (08:13)
[2017-10-08] MEDS: POTASSIUM CHLORIDE 20 MEQ TAB.ER.PRT PO SCH (08:13)
[2017-10-08] MEDS: METOPROLOL TARTRATE 25 MG TABLET PO SCH (08:13)
== END 2017-10-08 14:40 | disposition home or self-care (01) | DRG 291 ==
LOC: ED 03:35 → EDIP 04:03 → 5SO 05:24 → DCLOUNGE 10-08 14:24
PROVIDERS: ADMIT Family Medicine; ATTEND Family Medicine
DX: I11.0 Hypertensive heart disease with heart failure (principal); J96.01 Acute respiratory failure with hypoxia; N17.0 Acute kidney failure with tubular necrosis; J44.1 Chronic obstructive pulmonary disease with (acute) exacerbation; Z99.81 Dependence on supplemental oxygen; E87.6 Hypokalemia; G89.29 Other chronic pain; I50.21 Acute systolic (congestive) heart failure; F17.210 Nicotine dependence, cigarettes, uncomplicated; I27.20 Pulmonary hypertension, unspecified; I87.2 Venous insufficiency (chronic) (peripheral); I87.8 Other specified disorders of veins; L30.9 Dermatitis, unspecified; Z79.899 Other long term (current) drug therapy; Z90.710 Acquired absence of both cervix and uterus; R73.9 Hyperglycemia, unspecified
CPT/HCPCS: 36415; 71045; 80048; 80053; 83036; 83735; 83880; 84484; 85025; 85610; 85730; 93005; 93306; 93970; 94640; 96374; 96375; J0696; J1644; J1940; J3480; J7620; J2920; J2930; J3475; J7030; J7040

== ENCOUNTER 2018-09-20 07:21 | Inpatient (IN) | payer MEDICARE, MEDICAID ==
[~2018-09-20] VITALS: Ht 167.6 cm; Wt 84.2 kg
[2018-09-27 12:20] VITALS: BP 110/68
== END 2018-09-27 15:15 | disposition home or self-care (01) | DRG 189 ==
LOC: ED 08:33 → EDIP 10:37 → 4NOR 13:23
PROVIDERS: ADMIT Family Medicine; ATTEND Family Medicine
DX: J96.20 Acute and chronic respiratory failure, unspecified whether with hypoxia or hypercapnia (principal); J44.1 Chronic obstructive pulmonary disease with (acute) exacerbation; F10.239 Alcohol dependence with withdrawal, unspecified; K86.1 Other chronic pancreatitis; E87.1 Hypo-osmolality and hyponatremia; K76.6 Portal hypertension; I50.9 Heart failure, unspecified; I11.0 Hypertensive heart disease with heart failure; F17.210 Nicotine dependence, cigarettes, uncomplicated; E86.0 Dehydration; K76.0 Fatty (change of) liver, not elsewhere classified; E83.42 Hypomagnesemia; Z99.81 Dependence on supplemental oxygen; Z87.19 Personal history of other diseases of the digestive system; Z86.73 Personal history of transient ischemic attack (TIA), and cerebral infarction without residual deficits; Z76.5 Malingerer [conscious simulation]; Z85.41 Personal history of malignant neoplasm of cervix uteri; Z83.3 Family history of diabetes mellitus
CPT/HCPCS: 36415; 71045; 74018; 74160; 76705; 80048; 80053; 81003; 83605; 83690; 83735; 83880; 84484; 85025; 87040; 93005; 94640; 96374; 96375; 96376; 99285; G0378; J1650; J2405; J3480; J7042; J7611; J7613; J7620; J7626; Q9967; J0360; J2270; J2930; J3475; J7120; J7512

== ENCOUNTER 2019-09-23 08:34 | Emergency (ER) | payer MEDICARE, MEDICAID ==
[~2019-09-23] VITALS: Ht 170.2 cm; Wt 79.0 kg
[~2019-09-23 08:34] MED LIST changes: +AMIT10TA PO; +DOXY100T PO; +FURO-92 PO; +LIPA1CAP61 PO; +NALO4SPR NAS; +OXYC15TA60 PO; +OXYC5TAB3 PO; +POTA20TA89 PO
--- NOTE | 2019-09-23 08:42 | NUR ---
PT MANI BLANCHARD PT FROM [facility], WHERE FACILITY HAS BEEN UNSUCCESSFUL IN CONTROLLING PT BLOOD PRESSURE. PT FOUND TO BE HYPERTENSIVE AT FACILITY, AND WAS NOT RESPONDING TO ANTIHYPERTENSIVE MEDICATIONS. UPON ARRIVAL TO [facility], PT BP 190/100. PT IN [facility] WITH GHADA COHN AT BS. AJAY MENENDEZ AT BS FOR PT HISTORY AND ASSESSMENT. PT EDUCATED ON ER PROCESS AND POC. SUKI AT BS FOR PT EKG. AWAITING ORDERS AT THIS TIME.
[2019-09-23] MEDS ORDERED: PROMETHAZINE 25 MG/ML, 1ML IM ONE (09:00)
[2019-09-23] MEDS ORDERED: LORazepam 2 MG/ML, 1ML IVPush ONE (09:00)
[2019-09-23] MEDS ORDERED: THIAMINE 100MG TABLET PO ONE (09:00)
[2019-09-23] MEDS ORDERED: SODIUM CHLORIDE 0.9% 1,000ML IVBOLUS ONE (09:00)
[2019-09-23] MEDS ORDERED: LORazepam 2 MG/ML, 1ML ONE (09:08)
[2019-09-23] MEDS ORDERED: THIAMINE 100MG TABLET ONE (09:09)
[2019-09-23] MEDS ORDERED: PROMETHAZINE 25 MG/ML, 1ML ONE (09:09)
[2019-09-23 09:23] LABS: BASOPHILS % (AUTO) 0 % (0-1); EOSINOPHILS # (AUTO) 0.04 x10^3/uL (0-0.4); EOSINOPHILS % (AUTO) 1 % (1-7); LYMPHOCYTES # (AUTO) 0.62 x10^3/uL (1-3.4); LYMPHOCYTES % (AUTO) 9 % (22-44); MD NO; MEAN CORPUSCULAR HEMOGLOBIN 32.7 pg (27.0-34.8); MEAN CORPUSCULAR HGB CONC 32.7 g/dL (32.4-35.8); MONOCYTES # (AUTO) 0.54 x10^3/uL (0.2-0.8); MONOCYTES % (AUTO) 7 % (2-9); NEUTROPHILS # (AUTO) 6.12 x10^3/uL (1.8-6.8); NEUTROPHILS % (AUTO) 84 % (42-75); PLATELET COUNT 144 x10^3/uL (130-400); RED CELL DISTRIBUTION WIDTH 14.1 % (9.6-15.2)
[2019-09-23 09:34] LABS: ALANINE AMINOTRANSFERASE 16 U/L (12-78); ALBUMIN 3.7 g/dL (3.4-5.0); ANION GAP 8 mmol/L (5-15); CALCIUM 9.6 mg/dL (8.5-10.1); CHLORIDE 99 mmol/L (98-107); CREATININE 0.91 mg/dL (0.55-1.02)
--- NOTE | 2019-09-23 09:35 | NUR ---
report received from RN Roderick, PIV placed, pt medicated per emar. pt placed on all montiors, pt a&o, resps even and unlabored, neuro intact. call light in reach. [place] staff at bedside.
[2019-09-23 09:37] LABS: ALKALINE PHOSPHATASE 117 U/L (45-117); BILIRUBIN,TOTAL 1.5 mg/dL (0.2-1.0); TOTAL PROTEIN 8.5 g/dL (6.4-8.2)
[2019-09-23 10:56] VITALS: BP 168/93
--- NOTE | 2019-09-23 10:57 | NUR ---
DC ORDERS RECEIVED, ROLAN BOUDREAUX NOTIFIED PT IS 90-92% ON ROOM AIR, IMPROVES WITH AMBULATION. EDPA OK'D DC. PIV DC'D WITH TIP INTACT. PT DROWSY, ORIENTED, RESPS EVEN AND UNLABORED. AMBULATORY WITH STEADY GAIT, GIVEN WHEELCHAIR ESCORT TO DC. PT DISCHARGED BACK TO [facility] STAFF MEMBER WITH PT AT TIME OF DISCHARGE, DISCHARGE MODE IS TAXI PER THEIR PROTOCOL.
== END 2019-09-23 10:58 ==
LOC: ED 09:09
DX: I11.0 Hypertensive heart disease with heart failure (principal); I50.9 Heart failure, unspecified; F10.239 Alcohol dependence with withdrawal, unspecified; R94.31 Abnormal electrocardiogram [ECG] [EKG]; R51 Headache; J44.9 Chronic obstructive pulmonary disease, unspecified; Y90.9 Presence of alcohol in blood, level not specified
CPT/HCPCS: 36415; 80053; 83690; 85025; 93005; 96372; 96374; 99284; J2060; J2550; J7030